=== PATIENT | female | born 1965 | race Caucasian/White ===

== ENCOUNTER 2017-04-04 17:32 | Emergency (ER) | payer MEDICAID, OTHER ==
[2017-04-04 17:32] VITALS: BMI 28.4
[2017-04-04 17:49] VITALS: RESP 18; TEMP 97.6
[2017-04-04] MEDS ORDERED: DiphenhydrAMINE 50 mg/ml Inj IM STA (18:02)
--- NOTE | 2017-04-04 18:06 | ED PDOC ---
Arrival/HPI - General Chief Complaint: Allergic Reaction Time Seen by Provider: 04/04/17 17:48 Historian: Patient - History of Present Illness Narrative History of Present Illness (Text): 04/04/17 18:03 52yo female with PMHx of hypertension and diabetes who present with complaint of itchy rash x 2days. The daughter who is by the bedside states the only new thing patient took was Ibuprofen. She denies drooling, tongue swelling, SOB, chest pain, any other inciting factors. Past Medical History - Provider Review Nursing Documentation Reviewed: Yes - Infectious Disease Hx of Infectious Diseases: None - Tetanus Immunization Tetanus Immunization: Unknown - Past Medical History Past Medical History: No Previous - Cardiac Hx Hypertension: Yes - Pulmonary Hx Respiratory Disorders: No - Neurological Hx Neurological Disorder: Yes Hx Dizziness: Yes - HEENT Hx HEENT Disorder: No - Renal Hx Renal Disorder: No - Endocrine/Metabolic Hx Diabetes Mellitus Type 2: Yes Hx Hyperthyroidism: Yes - Hematological/Oncological Hx Blood Disorders: No - Integumentary Hx Dermatological Disorder: No - Musculoskeletal/Rheumatological Hx Falls: No - Gastrointestinal Hx Gastrointestinal Disorders: Yes (COLITIS,HERNIORHAPPHY,HEMORRHOIDS WITH SX) Hx Colitis: Yes Hx Gastroesophageal Reflux: Yes Hx Hemorrhoids: Yes - Genitourinary/Gynecological Hx Genitourinary Disorders: Yes (HYSTERECTOMY,MISCARRIAGE X 1) Other/Comment: ovarian cyst - Psychiatric Hx Psychophysiologic Disorder: No Hx Substance Use: No - Surgical History Hx Section: Yes Hx Hysterectomy: Yes Other/Comment: Abdominal cyst removal - Anesthesia Hx Anesthesia: Yes Hx Anesthesia Reactions: No Hx Malignant Hyperthermia: No - Suicidal Assessment Feels Threatened In Home Enviroment: No Family/Social History - Physician Review Nursing Documentation Reviewed: Yes Family/Social History: Unknown Family HX Smoking Status: Never Smoked Hx Alcohol Use: No Hx Substance Use: No Hx Substance Use Treatment: No Allergies/Home Meds Allergies/Adverse Reactions: Allergies nitrofurantoin [From Macrobid] Allergy (Intermediate, Verified 04/04/17 17:42) RASH sulfamethoxazole [From Bactrim] Allergy (Intermediate, Verified 04/04/17 17:42) ITCHING trimethoprim [From Bactrim] Allergy (Intermediate, Verified 04/04/17 17:42) ITCHING Penicillins Adverse Reaction (Verified 04/04/17 17:42) ITCHING Home Medications: Home Meds Medication Instructions Recorded Confirmed Aspirin [Ecotrin] 81 mg PO DAILY 09/13/15 04/04/17 Lisinopril 10 mg PO DAILY 09/13/15 04/04/17 methIMAzole [Tapazole] 5 mg PO DAILY 09/13/15 04/04/17 MetFORMIN [glucoPHAGE] 1,000 mg PO BID 01/10/16 04/04/17 Simvastatin 40 mg PO DAILY 01/10/16 04/04/17 Alogliptin Benzoate [Alogliptin] 25 mg PO DAILY 04/04/17 04/04/17 Amitriptyline [Elavil] 25 mg PO DAILY 04/04/17 04/04/17 Insulin Glargine,Hum.rec.anlog 15 unit SQ DAILY 04/04/17 04/04/17 [Facundo Best] Review of Systems - Physician Review All systems were reviewed & negative as marked: Yes - Review of Systems Constitutional: Normal Eyes: Normal ENT: Normal Respiratory: Normal Cardiovascular: Normal Gastrointestinal: Normal Genitourinary Female: Normal Musculoskeletal: Normal Skin: Rash, Pruritis Neurological: Normal Endocrine: Normal Hemo/Lymphatic: Normal Psychiatric: Normal Physical Exam Vital Signs Reviewed: Yes Vital Signs Temp Pulse Resp BP Pulse Ox 04/04/17 17:48 97.6 F 110 H 18 141/92 H 96 Temperature: Afebrile Blood Pressure: Normal Pulse: Tachycardic Respiratory Rate: Normal Appearance: Positive for: Well-Appearing, Non-Toxic, Comfortable Pain Distress: None Mental Status: Positive for: Alert and Oriented X 3 - Systems Exam Head: Present: Atraumatic, Normocephalic Pupils: Present: PERRL Extroacular Muscles: Present: EOMI Conjunctiva: Present: Normal Mouth: Present: Moist Mucous Membranes. No: Drooling Pharnyx: No: Strider Neck: Present: Normal Range of Motion Respiratory/Chest: Present: Clear to Auscultation, Good Air Exchange. No: Respiratory Distress, Accessory Muscle Use Cardiovascular: Present: Regular Rate and Rhythm, Normal S1, S2. No: Murmurs Abdomen: Present: Normal Bowel Sounds. No: Tenderness, Distention, Peritoneal Signs Back: Present: Normal Inspection Upper Extremity: Present: Normal Inspection. No: Cyanosis, Edema Lower Extremity: Present: Normal Inspection. No: Edema Neurological: Present: GCS=15, CN II-XII Intact, Speech Normal Skin: Present: Warm, Dry, Rashes (Hives noted to b/l arms/ trunk/back and lowr extremities), Normal Color Psychiatric: Present: Alert, Oriented x 3, Normal Insight, Normal Concentration Medical Decision Making ED Course and Treatment: 04/04/17 18:59 Pt in ED for stated history. she was not in any distress in ED. No stridor and no drooling. Her symptoms improved in ED. Her VS improved. She was DC home with prednisone, pepcid, and Benadryl. Advised to stop taking Ibuprofen until she is cleared by an national coverage specialist. TRT ED for any new or worsening symptoms. - Medication Orders Current Medication Orders: Discontinued Medications Diphenhydramine HCl (Benadryl) 25 mg IM STAT STA Stop: 04/04/17 18:03 Last Admin: 04/04/17 18:32 Dose: 25 mg IM Administration Charges Document 04/04/17 18:32 EQ (Rec: 04/04/17 18:42 EQ [id number]) Injection Site MAR Injection Site Left Arm Charges for Administration # of IM Administrations 1 Famotidine (Pepcid) 20 mg PO STAT STA Stop: 04/04/17 18:03 Last Admin: 04/04/17 18:42 Dose: 20 mg Prednisone (Prednisone Tab) 40 mg PO STAT STA Stop: 04/04/17 18:03 Last Admin: 04/04/17 18:42 Dose: 40 mg Disposition/Present on Arrival - Present on Arrival Any Indicators Present on Arrival: No History of DVT/PE: No History of Uncontrolled Diabetes: Yes Urinary Catheter: No History of Decub. Ulcer: No History Surgical Site Infection Following: None - Disposition Have Diagnosis and Disposition been Completed?: Yes Diagnosis: Allergic reaction Disposition: HOME/ ROUTINE Disposition Time: 18:40 Patient Plan: Discharge Patient Problems: Current Active Problems Problem Status Onset Allergic reaction Acute Condition: STABLE Discharge Instructions (ExitCare): [place] (ED) Additional Instructions: Follow up with a Crimper Assembler/Insurance Actuary Stop taking Ibuprofen until you area cleared from an national coverage specialist Return to ED for any new or worsening symptoms Prescriptions: DiphenhydrAMINE [Benadryl] 25 mg PO Q4 #20 cap Famotidine [Pepcid] 20 mg PO DAILY #10 tab predniSONE [Prednisone] 10 mg PO DAILY #3 tab Referrals: Kareem Bales MD [Primary Care Provider] - Follow up with primary Forms: [facility] (Macedonian)
[2017-04-04 19:10] VITALS: BP 138/73; PULSE 91; O2SAT 99
== END 2017-04-04 19:14 | disposition home or self-care (01) ==
LOC: ED 17:32
DX: L50.0 Allergic urticaria (principal)
CPT/HCPCS: 96372; 99283; J1200